=== PATIENT | female | born 1990 | race Caucasian/White ===

== ENCOUNTER 2016-05-18 23:58 | Emergency (ER) | payer BC ==
[~2016-05-18] VITALS: Ht 172.7 cm; Wt 62.6 kg
[2016-05-19 00:13] VITALS: BP 121/57
--- NOTE | 2016-05-19 00:20 | NUR ---
PT TAKEN TO BED 7
--- NOTE | 2016-05-19 00:29 | NUR ---
PATIENT PRESENTS TO ED WITH LT MIDDLE FINGER PAIN, EDEMA AND ERYTHEMA . PT STATES IT STARTED OFF A SMALL BUMP LAST NIGHT THAT SHE PAID NO ATTENTION TO AND GREW IN SIZE AND PAIN INTENSITY OVERNIGHT. PT REPORTS VISITING [facility] NURSE AND WAS GIVEN AN ANTIBIOTIC THAT SHE STARTED TAKING TONIGHT BUT IS WORRIED ABOUT THE INCREASE IN REDNESS AND PAIN . DENIES N/V/D; SKIN IS PINK/WARM/DRY; AAOX4 WITH EVEN AND STEADY GAIT; LUNGS CLEAR BL; HR EVEN AND REGULAR; PT DENIES ANY FEVER, CP, SOB, OR COUGH AT THIS TIME; PATIENT STATES PAIN OF 9/10 AT THIS TIME; VSS; PATIENT POSITIONED FOR COMFORT; HOB ELEVATED; BEDRAILS UP X2; BED DOWN. ER MD MADE AWARE OF PT STATUS.
--- NOTE | 2016-05-19 00:37 | NUR ---
Dr. Nielsen evaluating patient at bedside.
[2016-05-19] MEDS ORDERED: LIDOCAINE/PRILOCAINE 2.5% 5 GM TUBE TP ONE (01:10)
[2016-05-19] MEDS ORDERED: NEOMYCIN/POLYMYXIN/BACITRACIN 0.9 GM/1 PKT TP ONE (01:55)
[2016-05-19 02:09] VITALS: BP 117/78
--- NOTE | 2016-05-19 02:10 | NUR ---
Patient discharged with v/s stable. Written and verbal after care instructions given and explained. Patient alert, oriented and verbalized understanding of instructions. Ambulatory with steady gait. All questions addressed prior to discharge. ID band removed. Patient advised to follow up with PMD. Rx of MOTRIN AND BACTRIM 800MG-160MG PO BID given. Patient educated on indication of medication including possible reaction and side effects. Opportunity to ask questions provided and answered.
== END 2016-05-19 02:10 | disposition home or self-care (01) ==
LOC: MED 23:58
DX: L03.012 Cellulitis of left finger (principal); R03.0 Elevated blood-pressure reading, without diagnosis of hypertension; R06.02 Shortness of breath; R00.2 Palpitations